=== PATIENT | female | born 1965 | race Asian ===

== ENCOUNTER 2024-11-16 19:27 | Inpatient (IN) | payer MEDICARE, OTHER ==
--- NOTE | 2024-11-16 19:43 | ED ---
General Adult HPI - General Chief complaint: Dizziness Stated complaint: dizziness Time Seen by Provider: 11/16/24 19:28 Source: patient, EMS, RN notes reviewed, old records reviewed Mode of arrival: EMS Limitations: no limitations - History of Present Illness Initial comments: 59-year-old female presenting with lightheadedness, dizziness, hypotension. Patient has history of CAD as well as diabetes. She is on Farxiga and believes this medication is causing her symptoms. She is also on lisinopril and hydrochlorothiazide. No recent medication changes. No fever. No chest pain. No dyspnea. No lower extremity pain or swelling. - Related Data Allergies Allergy/AdvReac Type Severity Reaction Status Date / Time No Known Allergies Allergy Verified 11/16/24 19:56 Review of Systems ROS Statement: Those systems with pertinent positive or pertinent negative responses have been documented in the HPI. ROS Other: All systems not noted in ROS Statement are negative. Past Medical History Past Medical History: Chest Pain / Angina, Diabetes Mellitus, Hypertension History of Any Multi-Drug Resistant Organisms: None Reported Past Surgical History: Section, Coronary Bypass/CABG Additional Past Surgical History / Comment(s): Femoral bypass Past Psychological History: No Psychological Hx Reported Smoking Status: Never smoker Past Alcohol Use History: None Reported Past Drug Use History: None Reported General Exam Limitations: no limitations General appearance: alert, in no apparent distress Head exam: Present: atraumatic, normocephalic Eye exam: Present: normal appearance, PERRL ENT exam: Present: normal exam Neck exam: Present: normal inspection. Absent: tenderness Respiratory exam: Present: normal lung sounds bilaterally. Absent: respiratory distress, wheezes Cardiovascular Exam: Present: regular rate, normal rhythm GI/Abdominal exam: Present: soft. Absent: distended, tenderness Extremities exam: Present: normal inspection, normal capillary refill Neurological exam: Present: alert, oriented X3, CN II-XII intact. Absent: motor sensory deficit Psychiatric exam: Present: normal affect, normal mood Skin exam: Present: warm, dry, intact Course Vital Signs 11/16/24 11/16/24 19:32 20:10 Temperature 98.6 F Pulse Rate 70 72 Respiratory 18 18 Rate Blood Pressure 94/41 123/67 O2 Sat by Pulse 100 98 Oximetry Medical Decision Making - Medical Decision Making Was pt. sent in by a medical professional or institution (, PA, TEMPLATE MAKER, urgent care, hospital, or intermediate...) When possible be specific @ -No Did you speak to anyone other than the patient for history (EMS, parent, family, police, friend...)? What history was obtained from this source @ -No Did you review nursing and triage notes (agree or disagree)? Why? @ -I reviewed and agree with nursing and triage notes Were old charts reviewed (outside hosp., previous admission, EMS record, old EKG, old radiological studies, urgent care reports/EKG's, intermediate records)? Report findings @ -No old charts were reviewed Differential Syncope: Valvular disease, hypertrophic cardiomyopathy, pulmonary embolism, tamponade, tachycardia, bradycardia, SD, hypovolemia, hemorrhage, dissection, anemia, intracranial hemorrhage, seizure, hypoglycemia, carbon monoxide poisoning, this is not meant to be an all-inclusive list. EKG interpreted by me (3pts min.). @ -Sinus rhythm with left bundle branch block, no old for comparison, rate of 70, AR interval 200, QRS duration 154, QTc 480 X-rays interpreted by me (1pt min.). @Chest x-ray clear no acute findings CT interpreted by me (1pt min.). @ -None done U/S interpreted by me (1pt. min.). @ -None done What testing was considered but not performed or refused? (CT, X-rays, U/S, labs)? Why? @ -None What meds were considered but not given or refused? Why? @ -None Did you discuss the management of the patient with other professionals (professionals i.e. , PA, TEMPLATE MAKER, lab, RT, psych nurse, sr. social media & mobile manager, consulting engineer, teacher, airfield services officer, dependency case manager)? Give summary @ -EMH Was smoking cessation discussed for >3mins.? @ -No Was critical care preformed (if so, how long)? @ -No Were there social determinants of health that impacted care today? How? (Homelessness, low income, unemployed, alcoholism, drug addiction, transportation, low edu. Level, literacy, decrease access to med. care, fci, rehab)? @ -No Was there de-escalation of care discussed even if they declined (Discuss DNR or withdrawal of care, Hospice)? DNR status @ -No What co-morbidities impacted this encounter? (DM, HTN, Smoking, COPD, CAD, Ca ncer, CVA, ARF, Chemo, Hep., AIDS, mental health diagnosis, sleep apnea, morbid obesity)? @Diabetes, CAD status post bypass Was patient admitted / discharged? Hospital course, mention meds given and r oute, prescriptions, significant lab abnormalities, going to OR and other pertinent info. @59-year-old female with lightheadedness, dizziness, hypotension. Patient has significant past medical history she is on multiple medications and believes that her symptoms are related to her Farxiga. She does appear dehydrated, given IV fluids with improvement in blood pressure. She has no baseline EKG no baseline laboratory test due to the fact that she lives in [place]. Her sodium is 124 and hemoglobin is 7. She denies any active bleeding including no melena or rectal bleeding. She will be observed overnight for IV hydration and repeat laboratory testing in the morning. Case discussed with EM. Undiagnosed new problem with uncertain prognosis? @ -No Drug Therapy requiring intensive monitoring for toxicity (Heparin, Nitro, Insulin, Cardizem)? @ -No Were any procedures done? @ -No Diagnosis/symptom? @ -[Orthostatic hypotension, near syncope, anemia, hyponatremia Acute, or Chronic, or Acute on Chronic? @ -Acute Uncomplicated (without systemic symptoms) or Complicated (systemic symptoms)? @ -[default Side effects of treatment? @ -No Exacerbation, Progression, or Severe Exacerbation? @ -No Poses a threat to life or bodily function? How? (Chest pain, USA, SD, pneumonia, PE, COPD, DKA, ARF, appy, cholecystitis, CVA, Diverticulitis, Homicidal, Suicidal, threat to staff... and all critical care pts) @ -Yes, hypotension - Lab Data Result diagrams: 11/16/24 20:08 11/16/24 20:08 Lab Results 11/16/24 11/16/24 11/16/24 Range/Units 20:08 20:08 20:08 WBC 10.15 H (4.50-10.00) 10*3/uL RBC 2.84 L (4.10-5.20) 10*6/uL Hgb 7.1 L (12.0-15.0) g/dL Hct 21.8 L (37.2-46.3) % MCV 76.8 L (80.0-97.0) fL MCH 25.0 L (27.0-32.0) pg MCHC 32.6 (32.0-37.0) g/dL Plt Count 186 (140-440) 10*3/uL MPV 12.0 (9.5-12.2) fL Immature Gran % (Auto) 0.4 % Neutrophils % 79.5 % Lymphocytes % 10.0 % Monocytes % 7.8 % Eosinophils % 1.6 % Basophils % 0.7 % Immature Gran # 0.04 (0.00-0.04) 10*3/uL Neutrophils # 8.07 H (1.80-7.70) 10*3/uL Lymphocytes # 1.02 (0.90-5.00) 10*3/uL Monocytes # 0.79 (0.20-1.00) 10*3/uL Eosinophils # 0.16 (0.04-0.35) 10*3/uL Basophils # 0.07 (0.00-0.10) 10*3/uL Immature Plt Fraction 15.3 H (1.1-6.1) % PT 10.9 (10.0-12.5) sec INR 1.0 (<1.2) APTT 24.7 (22.0-30.0) sec Sodium 124 L (137-145) mmol/L Potassium 4.8 (3.5-5.1) mmol/L Chloride 95 L (98-107) mmol/L Carbon Dioxide 19 L (22-30) mmol/L Anion Gap 10 mmol/L BUN 15 (7-17) mg/dL Creatinine 0.79 (0.52-1.04) mg/dL Est GFR (CKD-EPI)AfAm >90 (>60 ml/min/1.73 sqM) Est GFR (CKD-EPI)NonAf 84 (>60 ml/min/1.73 sqM) Glucose 289 H (74-99) mg/dL Calcium 8.9 (8.4-10.2) mg/dL Total Bilirubin 0.5 (0.2-1.3) mg/dL AST 22 (14-36) U/L ALT 17 (4-34) U/L Alkaline Phosphatase 75 (38-126) U/L Troponin I (0.000-0.034) ng/mL Total Protein 6.7 (6.3-8.2) g/dL Albumin 4.2 (3.5-5.0) g/dL Urine Color Urine Appearance (Clear) Urine pH (5.0-8.0) Ur Specific [place] (1.001-1.035) Urine Protein (Negative) Urine Glucose (UA) (Negative) Urine Ketones (Negative) Urine Blood (Negative) Urine Nitrite (Negative) Urine Bilirubin (Negative) Urine Urobilinogen (<2.0) mg/dL Ur Leukocyte Esterase (Negative) Urine RBC (0-5) /hpf Urine WBC (0-5) /hpf Ur Squamous Epith Cells (0-4) /hpf Urine Bacteria (None) /hpf 11/16/24 11/16/24 Range/Units 20:08 21:01 WBC (4.50-10.00) 10*3/uL RBC (4.10-5.20) 10*6/uL Hgb (12.0-15.0) g/dL Hct (37.2-46.3) % MCV (80.0-97.0) fL MCH (27.0-32.0) pg MCHC (32.0-37.0) g/dL Plt Count (140-440) 10*3/uL MPV (9.5-12.2) fL Immature Gran % (Auto) % Neutrophils % % Lymphocytes % % Monocytes % % Eosinophils % % Basophils % % Immature Gran # (0.00-0.04) 10*3/uL Neutrophils # (1.80-7.70) 10*3/uL Lymphocytes # (0.90-5.00) 10*3/uL Monocytes # (0.20-1.00) 10*3/uL Eosinophils # (0.04-0.35) 10*3/uL Basophils # (0.00-0.10) 10*3/uL Immature Plt Fraction (1.1-6.1) % PT (10.0-12.5) sec INR (<1.2) APTT (22.0-30.0) sec Sodium (137-145) mmol/L Potassium (3.5-5.1) mmol/L Chloride (98-107) mmol/L Carbon Dioxide (22-30) mmol/L Anion Gap mmol/L BUN (7-17) mg/dL Creatinine (0.52-1.04) mg/dL Est GFR (CKD-EPI)AfAm (>60 ml/min/1.73 sqM) Est GFR (CKD-EPI)NonAf (>60 ml/min/1.73 sqM) Glucose (74-99) mg/dL Calcium (8.4-10.2) mg/dL Total Bilirubin (0.2-1.3) mg/dL AST (14-36) U/L ALT (4-34) U/L Alkaline Phosphatase (38-126) U/L Troponin I <0.012 (0.000-0.034) ng/mL Total Protein (6.3-8.2) g/dL Albumin (3.5-5.0) g/dL Urine Color Colorless Urine Appearance Cloudy H (Clear) Urine pH 5.0 (5.0-8.0) Ur Specific [place] 1.010 (1.001-1.035) Urine Protein Negative (Negative) Urine Glucose (UA) 4+ H (Negative) Urine Ketones Negative (Negative) Urine Blood Negative (Negative) Urine Nitrite Negative (Negative) Urine Bilirubin Negative (Negative) Urine Urobilinogen <2.0 (<2.0) mg/dL Ur Leukocyte Esterase Trace H (Negative) Urine RBC 1 (0-5) /hpf Urine WBC 5 (0-5) /hpf Ur Squamous Epith Cells 1 (0-4) /hpf Urine Bacteria Occasional H (None) /hpf Disposition Clinical Impression: Dehydration, Orthostatic hypotension, Hyponatremia, Anemia Disposition: ADMITTED IP TO THIS HOSP Condition: Stable Is patient prescribed a controlled substance at d/c from ED?: No Referrals: None,Stated [Primary Care Provider] - 1-2 days Time of Disposition: 21:24
[2024-11-16] MEDS: SODIUM CHLORIDE 0.9% 500 ML 500 ML IV STA (20:13)
[2024-11-16 20:23] LABS: Basophils # (A) 0.07 10*3/uL (0.00-0.10); Basophils % (A) 0.7 %; Eosinophils # (A) 0.16 10*3/uL (0.04-0.35); Eosinophils % (A) 1.6 %; HCT 21.8 % (37.2-46.3); HGB 7.1 g/dL (12.0-15.0); Immature Platelet Fraction 15.3 % (1.1-6.1); Lymphocytes # (A) 1.02 10*3/uL (0.90-5.00); MCHC 32.6 g/dL (32.0-37.0); MCV 76.8 fL (80.0-97.0); Monocytes # (A) 0.79 10*3/uL (0.20-1.00); Monocytes % (A) 7.8 %; Neutrophils # (A) 8.07 10*3/uL (1.80-7.70); Neutrophils % (A) 79.5 %; Platelet Count 186 10*3/uL (140-440); RBC 2.84 10*6/uL (4.10-5.20); RDW 17.3 % (11.5-14.5); WBC 10.15 10*3/uL (4.50-10.00)
[2024-11-16 20:32] LABS: African American GFR (CKD) >90 (>60 ml/min/1.73 sqM); Anion Gap 10 mmol/L; Blood Urea Nitrogen 15 mg/dL (7-17); Carbon Dioxide 19 mmol/L (22-30); Chloride 95 mmol/L (98-107); Glucose 289 mg/dL (74-99); Potassium 4.8 mmol/L (3.5-5.1); Sodium 124 mmol/L (137-145)
[2024-11-16 20:33] LABS: ALT 17 U/L (4-34); AST 22 U/L (14-36); Albumin 4.2 g/dL (3.5-5.0); Alkaline Phosphatase 75 U/L (38-126); Calcium 8.9 mg/dL (8.4-10.2); Non-African American GFR(CKD) 84 (>60 ml/min/1.73 sqM); Total Bilirubin 0.5 mg/dL (0.2-1.3); Total Protein 6.7 g/dL (6.3-8.2)
[2024-11-16 20:54] LABS: Partial Thromboplastin Time 24.7 sec (22.0-30.0); Prothrombin Time 10.9 sec (10.0-12.5)
--- NOTE | 2024-11-16 20:58 | XR ---
EXAMINATION TYPE: XR chest 2V DATE OF EXAM: 11/16/2024 8:20 PM COMPARISON: None CLINICAL INDICATION: Female, 59 years old with history of syncope; TECHNIQUE: XR chest 2V Frontal and lateral views of the chest. FINDINGS: Lungs/Pleura: There is no evidence of pleural effusion, focal consolidation, or pneumothorax. Pulmonary vascularity: Unremarkable. Heart/mediastinum: Cardiomediastinal silhouette is unremarkable. Two lead cardiac conduction device o verlying the left hemithorax with lead tips projecting over the right ventricle and right atrium. Lef t atrial appendage occlusion device is present. Musculoskeletal: No acute osseous pathology. Midline sternotomy wires are noted. Other findings: None IMPRESSION: No acute cardiopulmonary disease/process. [facility], , 11/16/2024 8:56 PM
[2024-11-16] MEDS: SODIUM CHLORIDE 0.9% 500 ML 500 ML IV ONE (21:08)
[2024-11-16 21:20] LABS: Appearance,Urine Cloudy (Clear); Bacteria,Urine Occasional /hpf; Bilirubin,Urine Negative (Negative); Blood,Urine Negative (Negative); Color,Urine Colorless; Glucose,Urine (UA) 4+ (Negative); Ketones,Urine Negative (Negative); Leukocyte Esterase,Urine Trace (Negative); Nitrite,Urine Negative (Negative); Protein,Urine Negative (Negative); RBC,Urine 1 /hpf (0-5); Squamous Epithelial Cell,Urine 1 /hpf (0-4); Urobilinogen,Urine <2.0 mg/dL (<2.0); WBC,Urine 5 /hpf (0-5)
[2024-11-16] MEDS ORDERED: NALOXONE 0.4 MG/ML 1 ML VIAL IV PRN (21:24)
[2024-11-16] MEDS: SODIUM CHLORIDE 0.9% 1,000 ML IV SCH (21:51)
[2024-11-16] MEDS: ACETAMINOPHEN TAB 325 MG TAB PO PRN (21:54)
[2024-11-17 06:11] LABS: Basophils # (A) 0.06 10*3/uL (0.00-0.10); Basophils % (A) 0.8 %; Eosinophils # (A) 0.16 10*3/uL (0.04-0.35); Lymphocytes # (A) 0.86 10*3/uL (0.90-5.00); Lymphocytes % (A) 10.8 %; MCH 24.4 pg (27.0-32.0); MCHC 30.6 g/dL (32.0-37.0); MCV 79.5 fL (80.0-97.0); Mean Platelet Volume 12.2 fL (9.5-12.2); Monocytes # (A) 0.73 10*3/uL (0.20-1.00); Monocytes % (A) 9.2 %; Neutrophils # (A) 6.11 10*3/uL (1.80-7.70); Neutrophils % (A) 76.7 %; Platelet Count 151 10*3/uL (140-440); RBC 2.34 10*6/uL (4.10-5.20); RDW 17.5 % (11.5-14.5); WBC 7.96 10*3/uL (4.50-10.00)
[2024-11-17 06:14] LABS: HCT 18.6 % (37.2-46.3); HGB 5.7 g/dL (12.0-15.0)
[2024-11-17 06:29] LABS: Glucose,Whole Blood 195 mg/dL (70-110)
[2024-11-17 06:31] LABS: ALT 44 U/L (4-34); AST 62 U/L (14-36); African American GFR (CKD) >90 (>60 ml/min/1.73 sqM); Albumin 3.3 g/dL (3.5-5.0); Alkaline Phosphatase 60 U/L (38-126); Anion Gap 6 mmol/L; Blood Urea Nitrogen 14 mg/dL (7-17); Calcium 8.5 mg/dL (8.4-10.2); Carbon Dioxide 18 mmol/L (22-30); Chloride 105 mmol/L (98-107); Glucose 154 mg/dL (74-99); Non-African American GFR(CKD) >90 (>60 ml/min/1.73 sqM); Potassium 4.8 mmol/L (3.5-5.1); Sodium 129 mmol/L (137-145); Total Bilirubin 0.5 mg/dL (0.2-1.3); Total Protein 5.6 g/dL (6.3-8.2)
[2024-11-17] MEDS: PANTOPRAZOLE 40 MG/10 ML VIAL IVP ONE (10:17)
[2024-11-17] MEDS ORDERED: DEXTROSE 50% SYRINGE 50 ML IVP PRN ×2 (11:16)
[2024-11-17 12:55] LABS: Glucose,Whole Blood 219 mg/dL (70-110)
[2024-11-17] MEDS: FUROSEMIDE 10 MG/ML 2 ML VIAL IV PRN (12:55)
[2024-11-17] MEDS: SPIRONOLACTONE 25 MG TAB PO SCH (12:56)
[2024-11-17] MEDS: INSULIN LISPRO (HumaLOG) 100 UNIT/ML 10 mL VL SQ SCH (13:07)
--- NOTE | 2024-11-17 15:01 | P.GSCN ---
History of Present Illness Consult date: 11/17/24 History of present illness: CHIEF COMPLAINT: Dizziness HISTORY OF PRESENT ILLNESS: This is a 59-year-old female who presented with lightheadedness, dizziness and hypotension. Patient denies any abdominal pain. Denies any nausea or vomiting. Denies any blood in her stools or melena. Patient denies any blood in her urine. Denies any nosebleeds. She was found to be anemic on admission with a hemoglobin of 7.1 did drop to 5.7. She is receiving 2 units of blood. Patient does take Eliquis and Plavix at home last dose was yesterday. She reports requiring blood transfusions after her past surgical procedures which had included a triple bypass, femoral artery bypass and after being IV heparin DVT. Patient denies any NSAID use. Patient denies any prior history of EGD or colonoscopy. Patient lives in [place]. PAST MEDICAL HISTORY: See below PAST SURGICAL HISTORY: See below MEDICATIONS: See below ALLERGIES: See below SOCIAL HISTORY: No illicit drug use. REVIEW OF SYSTEMS: CONSTITUTIONAL: Denies fever or chills. HEENT: Denies blurred vision, vision changes, or eye pain. Denies hemoptysis CARDIOVASCULAR: Denies chest pain or pressure. RESPIRATORY: No shortness of breath. GASTROINTESTINAL: See HPI for pertinent findings HEMATOLOGIC: Denies bleeding disorders. GENITOURINARY: Denies any blood in urine or increased urinary frequency. SKIN: Denies pruitis. Denies rash. PHYSICAL EXAM: VITAL SIGNS: Reviewed GENERAL: Well-developed in no acute distress. HEENT: No sclera icterus. Extraocular movements grossly intact. Moist buccal mucosa. Head is atraumatic, normocephalic. No nasal drainage. ABDOMEN: Soft. Nondistended. Nontender., No rebound or guarding noted. NEUROLOGIC: Alert and oriented. Cranial nerves II through XII grossly intact. LABORATORY DATA: WBC 10.15 Hgb 7.1 down to 5.7 platelets 151 Sodium is 129 potassium 4.8 creatinine 0.58 Total bilirubin 0.5 AST 62 ALT 44 alk phos 60 Troponin negative IMAGING: ASSESSMENT: 1. Symptomatic anemia with no active GI bleed. On blood thinners at home. Status post 2 units of blood. 2. Hyponatremia PLAN: - Continue to hold Eliquis and Plavix - Recommended EGD and colonoscopy. Patient has declined endoscopies at this time. - Continue to monitor hemoglobin - Continue to monitor for any signs or symptoms of bleeding Physician [employer] note has been reviewed by physician. Signing provider agrees with the documented findings, assessment, and plan of care. Attestation Patient seen and examined at bedside on 11/17/2024. Presented with a chief complaint of lightheadedness, dizziness and hypotension. She is found to have symptomatic anemia with hemoglobin of 5.7. Receiving packed red blood cell transfusion x 2. She is on anticoagulation with Eliquis and Plavix. Denies any gross blood in her stool. Recommendation was made for endoscopy. The patient states that she was scheduled for endoscopy initially in June 2024, however did cancel because she developed a DVT requiring anticoagulation. She is scheduled for later this year and lives in [place] and prefers that endoscopy is performed there if not necessary at this time. Patient is aware of risks and if she develops any further symptoms of bleeding may require emergency procedure . Clarissa Quezada DO Past Medical History Past Medical History: Chest Pain / Angina, Diabetes Mellitus, Hypertension History of Any Multi-Drug Resistant Organisms: None Reported Past Surgical History: Section, Coronary Bypass/CABG Additional Past Surgical History / Comment(s): Femoral bypass Past Psychological History: No Psychological Hx Reported Smoking Status: Never smoker Past Alcohol Use History: None Reported Past Drug Use History: None Reported Medications and Allergies Home Medications Medication Instructions Recorded Confirmed Type Evolocumab [Repatha Sureclick] 140 mg SQ Q14D 11/17/24 11/17/24 History Insulin Glargine,Hum.rec.anlog 10 unit SQ HS 11/17/24 11/17/24 History [Basagljanessa Garcia U-100] Rosuvastatin Calcium 5 mg PO DAILY 11/17/24 11/17/24 History Spironolactone [Aldactone] 25 mg PO DAILY 11/17/24 11/17/24 History carvediloL [Coreg] 3.125 mg PO BID 11/17/24 11/17/24 History lisinopriL [Zestril] 10 mg PO DAILY 11/17/24 11/17/24 History Ferrous Sulfate [Feosol] 325 mg PO DAILY #30 tab 11/18/24 Rx Pantoprazole Sodium [Protonix] 40 mg PO ONCE #30 tab 11/18/24 Rx Allergies Allergy/AdvReac Type Severity Reaction Status Date / Time No Known Allergies Allergy Verified 11/17/24 08:44 Surgical - Exam Osteopathic Statement: *. No significant issues noted on an osteopathic structural exam other than those noted in the History and Physical/Consult. Vital Signs Temp Pulse Resp BP Pulse Ox 98.6 F 70 18 94/41 100 11/16/24 19:32 11/16/24 19:32 11/16/24 19:32 11/16/24 19:32 11/16/24 19:32 Results - Labs 11/18/24 06:33 11/18/24 06:33 Abnormal Lab Results - Last 24 Hours (Table) 11/16/24 11/16/24 11/16/24 Range/Units 20:08 20:08 21:01 WBC 10.15 H (4.50-10.00) 10*3/uL RBC 2.84 L (4.10-5.20) 10*6/uL Hgb 7.1 L (12.0-15.0) g/dL Hct 21.8 L (37.2-46.3) % MCV 76.8 L (80.0-97.0) fL MCH 25.0 L (27.0-32.0) pg MCHC (32.0-37.0) g/dL Neutrophils # 8.07 H (1.80-7.70) 10*3/uL Lymphocytes # (0.90-5.00) 10*3/uL Immature Plt Fraction 15.3 H (1.1-6.1) % Sodium 124 L (137-145) mmol/L Chloride 95 L (98-107) mmol/L Carbon Dioxide 19 L (22-30) mmol/L Glucose 289 H (74-99) mg/dL POC Glucose (mg/dL) (70-110) mg/dL AST (14-36) U/L ALT (4-34) U/L Total Protein (6.3-8.2) g/dL Albumin (3.5-5.0) g/dL Urine Appearance Cloudy H (Clear) Urine Glucose (UA) 4+ H (Negative) Ur Leukocyte Esterase Trace H (Negative) Urine Bacteria Occasional H (None) /hpf Crossmatch 11/17/24 11/17/24 11/17/24 Range/Units 05:33 05:33 06:28 WBC (4.50-10.00) 10*3/uL RBC 2.34 L (4.10-5.20) 10*6/uL Hgb 5.7 L* (12.0-15.0) g/dL Hct 18.6 L* (37.2-46.3) % MCV 79.5 L (80.0-97.0) fL MCH 24.4 L (27.0-32.0) pg MCHC 30.6 L (32.0-37.0) g/dL Neutrophils # (1.80-7.70) 10*3/uL Lymphocytes # 0.86 L (0.90-5.00) 10*3/uL Immature Plt Fraction 14.0 H (1.1-6.1) % Sodium 129 L (137-145) mmol/L Chloride (98-107) mmol/L Carbon Dioxide 18 L (22-30) mmol/L Glucose 154 H (74-99) mg/dL POC Glucose (mg/dL) 195 H (70-110) mg/dL AST 62 H (14-36) U/L ALT 44 H (4-34) U/L Total Protein 5.6 L (6.3-8.2) g/dL Albumin 3.3 L (3.5-5.0) g/dL Urine Appearance (Clear) Urine Glucose (UA) (Negative) Ur Leukocyte Esterase (Negative) Urine Bacteria (None) /hpf Crossmatch 11/17/24 Range/Units 06:51 WBC (4.50-10.00) 10*3/uL RBC (4.10-5.20) 10*6/uL Hgb (12.0-15.0) g/dL Hct (37.2-46.3) % MCV (80.0-97.0) fL MCH (27.0-32.0) pg MCHC (32.0-37.0) g/dL Neutrophils # (1.80-7.70) 10*3/uL Lymphocytes # (0.90-5.00) 10*3/uL Immature Plt Fraction (1.1-6.1) % Sodium (137-145) mmol/L Chloride (98-107) mmol/L Carbon Dioxide (22-30) mmol/L Glucose (74-99) mg/dL POC Glucose (mg/dL) (70-110) mg/dL AST (14-36) U/L ALT (4-34) U/L Total Protein (6.3-8.2) g/dL Albumin (3.5-5.0) g/dL Urine Appearance (Clear) Urine Glucose (UA) (Negative) Ur Leukocyte Esterase (Negative) Urine Bacteria (None) /hpf Crossmatch See Detail Diabetes panel 11/16/24 11/17/24 Range/Units 20:08 05:33 Sodium 124 L 129 L (137-145) mmol/L Potassium 4.8 4.8 (3.5-5.1) mmol/L Chloride 95 L 105 (98-107) mmol/L Carbon Dioxide 19 L 18 L (22-30) mmol/L BUN 15 14 (7-17) mg/dL Creatinine 0.79 0.58 (0.52-1.04) mg/dL Glucose 289 H 154 H (74-99) mg/dL Calcium 8.9 8.5 (8.4-10.2) mg/dL AST 22 62 H (14-36) U/L ALT 17 44 H (4-34) U/L Alkaline Phosphatase 75 60 (38-126) U/L Total Protein 6.7 5.6 L (6.3-8.2) g/dL Albumin 4.2 3.3 L (3.5-5.0) g/dL Calcium panel 11/16/24 11/17/24 Range/Units 20:08 05:33 Calcium 8.9 8.5 (8.4-10.2) mg/dL Albumin 4.2 3.3 L (3.5-5.0) g/dL Pituitary panel 11/16/24 11/17/24 Range/Units 20:08 05:33 Sodium 124 L 129 L (137-145) mmol/L Potassium 4.8 4.8 (3.5-5.1) mmol/L Chloride 95 L 105 (98-107) mmol/L Carbon Dioxide 19 L 18 L (22-30) mmol/L BUN 15 14 (7-17) mg/dL Creatinine 0.79 0.58 (0.52-1.04) mg/dL Glucose 289 H 154 H (74-99) mg/dL Calcium 8.9 8.5 (8.4-10.2) mg/dL Adrenal panel 11/16/24 11/17/24 Range/Units 20:08 05:33 Sodium 124 L 129 L (137-145) mmol/L Potassium 4.8 4.8 (3.5-5.1) mmol/L Chloride 95 L 105 (98-107) mmol/L Carbon Dioxide 19 L 18 L (22-30) mmol/L BUN 15 14 (7-17) mg/dL Creatinine 0.79 0.58 (0.52-1.04) mg/dL Glucose 289 H 154 H (74-99) mg/dL Calcium 8.9 8.5 (8.4-10.2) mg/dL Total Bilirubin 0.5 0.5 (0.2-1.3) mg/dL AST 22 62 H (14-36) U/L ALT 17 44 H (4-34) U/L Alkaline Phosphatase 75 60 (38-126) U/L Total Protein 6.7 5.6 L (6.3-8.2) g/dL Albumin 4.2 3.3 L (3.5-5.0) g/dL
[2024-11-17 16:06] LABS: HCT 25.8 % (37.2-46.3); MCH 26.7 pg (27.0-32.0); MCHC 32.6 g/dL (32.0-37.0); MCV 81.9 fL (80.0-97.0); Mean Platelet Volume 12.6 fL (9.5-12.2); Platelet Count 154 10*3/uL (140-440); RBC 3.15 10*6/uL (4.10-5.20); RDW 17.4 % (11.5-14.5)
[2024-11-17 16:17] LABS: HGB 8.4 g/dL (12.0-15.0)
[2024-11-17 16:59] LABS: Glucose,Whole Blood 280 mg/dL (70-110)
[2024-11-17] MEDS: carvediloL 3.125 MG TAB PO SCH (17:13)
--- NOTE | 2024-11-17 17:31 | P.HPIM ---
History of Present Illness H&P Date: 11/17/24 Patient is a 59-year-old female with history of CAD status post CABG, peripheral artery disease status post vascular surgeries (most recent in May 2024), type 2 diabetes mellitus, hypertension, former heavy smoker and drinker came was brought to the ER after she has been feeling weak, dizzy, lightheaded, dehydrated for 3 to 4 days. Patient is visiting his brother from [place]. Patient denies any history of upper or lower GI bleed. Patient reports no bloody stools or dark-colored stools. Patient is postmenopausal and reports no vaginal bleeding. No EGD or colonoscopy in the past. Patient is currently on Eliquis and Plavix. Patient also reports falling on the floor at home due to weakness and dizziness hurting both her knees but denies any injury to the head. Patient denies using NSAIDs. Patient currently denies any chest pain, shortness of breath, nausea, vomiting, diarrhea, constipation, numbness or weakness of upper or lower extremities. ED course: Patient initial lab work shows WBC 10.15, hemoglobin 7.1, sodium 124, potassium 4.8, glucose 289, BUN 15, creatinine 0.79. Subsequent lab work shows hemoglobin 5.7, sodium 129, AST 62, ALT 64,. Urinalysis positive for glycosuria. Patient currently receiving 2 units of packed RBC. Vital signs on arrival shows temperature 98.6 F, pulse rate 70, respiration rate 18, blood pressure 94/41, oxygen saturation 100% room air. Chest x-ray shows no acute cardiopulmonary process. EKG shows normal sinus rhythm with no ST elevation noted. Ventricular rate 70 bpm, GA interval of 201 ms, QRS duration 154 ms, QTc 480 ms. Review of systems: Pertinent positives and negatives as discussed in HPI, a complete review of systems was performed and all other systems are negative. Physical examination: Vital signs reviewed General: non toxic, no distress, appears at stated age, overweight Derm: no unusual rashes/lesions, warm Head: atraumatic, normocephalic, symmetric Eyes: EOMI, no lid lag, anicteric sclera, pupils equal round reactive to light ENT: Nose and ears atraumatic Neck: No cervical lymphadenopathy, trachea midline, supple Mouth: no lip lesion, mucus membranes moist Cardiovascular: S1S2 reg, no murmur, positive dorsalis pedis pulse bilateral, no edema Lungs: Mild bilateral expiratory wheezing, no rhonchi, no rales, no accessory muscle use Abdominal: soft, nontender to palpation, no guarding Ext: muscle strength 5 out of 5 in all 4 extremities grossly, no gross muscle atrophy, no contractures, Neuro: CN II-XI grossly intact, no gross focal neuro deficits Psych: Alert, oriented, appropriate affect Assessment/Plan: This is a 59-year-old female with history of CAD status post CABG, peripheral artery disease status post vascular surgeries (most recent in May 2024), type 2 diabetes mellitus, hypertension, former heavy smoker and drinker came was brought to the ER after she has been feeling weak, dizzy, lightheaded, dehydrated for 3 to 4 days. . Case was discussed with the Emergency Room pr cindy and decision was made to admit the patient for acute blood loss anemia, rule out upper GI bleed. Labs and images: Patient initial lab work shows WBC 10.15, hemoglobin 7.1, sodium 124, potassium 4.8, glucose 289, BUN 15, creatinine 0.79. Subsequent lab work shows hemoglobin 5.7, sodium 129, AST 62, ALT 64,. Urinalysis positive for glycosuria. Patient currently receiving 2 units of packed RBC. Vital signs on arrival shows temperature 98.6 F, pulse rate 70, respiration rate 18, blood pressure 94/41, oxygen saturation 100% room air. Chest x-ray shows no acute cardiopulmonary process. EKG shows normal sinus rhythm with no ST elevation noted. Ventricular rate 70 bpm, GA interval of 201 ms, QRS duration 154 ms, QTc 480 ms. Active: #Suspected acute blood loss anemia secondary to suspected upper GI bleed #Lightheadedness, generalized weakness secondary to above Hemoglobin dropped from 7.1 to 5.7 2 units of packed RBCs been ordered GI service is not available at this week so consult surgery team for upper GI endoscopy to rule out UGIB Received 1 dose of IV Protonix 80 mg Start patient on IV Protonix 40 mg twice daily Repeat hemoglobin in the afternoon Continue to monitor vital signs #Hypovolemic hyponatremia due to dehydration IV normal saline at 75 cc/h Continue monitor sodium levels #Type 2 diabetes mellitus Resume patient on Lantus 26 units SQ at bedtime Start patient on sliding scale insulin Continue monitor for hypoglycemia #Mild transaminitis due to dehydration Monitor CMP #History of CAD status post CABG #History of PAD status post vascular surgeries Hold Plavix and Eliquis DVT prophylaxis: SCDs GI prophylaxis: IV Protonix 40 mg twice daily Resume home medications F: IV normal saline 75 cc/h E: Replete as needed N: Heart healthy diet A: Ambulatory at baseline The patient is admitted with an anticipated more than than 2 midnight stay for evaluation of acute blood loss anemia likely UGIB CODE STATUS: Full code Discussed with: Patient Anticipated discharge place: Pending clinical course Dictation was produced using [employer] dictation software. Please excuse any grammatical, word or spelling errors. Past Medical History Past Medical History: Chest Pain / Angina, Diabetes Mellitus, Hypertension History of Any Multi-Drug Resistant Organisms: None Reported Past Surgical History: Section, Coronary Bypass/CABG Additional Past Surgical History / Comment(s): Femoral bypass Past Psychological History: No Psychological Hx Reported Smoking Status: Never smoker Past Alcohol Use History: None Reported Past Drug Use History: None Reported Medications and Allergies Home Medications Medication Instructions Recorded Confirmed Type Apixaban [Eliquis] 5 mg PO BID 11/17/24 11/17/24 History Clopidogrel [Plavix] 75 mg PO DAILY 11/17/24 11/17/24 History Evolocumab [Repatha Sureclick] 140 mg SQ Q14D 11/17/24 11/17/24 History Insulin Glargine,Hum.rec.anlog 10 unit SQ HS 11/17/24 11/17/24 History [Basaglar Kwikpen U-100] Rosuvastatin Calcium 5 mg PO DAILY 11/17/24 11/17/24 History Spironolactone [Aldactone] 25 mg PO DAILY 11/17/24 11/17/24 History carvediloL [Coreg] 3.125 mg PO BID 11/17/24 11/17/24 History lisinopriL [Zestril] 10 mg PO DAILY 11/17/24 11/17/24 History Allergies Allergy/AdvReac Type Severity Reaction Status Date / Time No Known Allergies Allergy Verified 11/17/24 08:44 Physical Exam Vitals: Vital Signs Temp Pulse Resp BP Pulse Ox 11/17/24 07:44 15 11/17/24 06:13 62 18 91/44 99 11/17/24 03:00 69 17 99/56 99 11/17/24 02:32 74 18 105/50 98 11/17/24 00:57 80 18 103/50 97 11/16/24 23:00 76 18 133/65 97 11/16/24 21:56 78 18 119/50 98 11/16/24 20:10 72 18 123/67 98 11/16/24 19:32 98.6 F 70 18 94/41 100 Intake and Output 11/16/24 11/17/24 11/17/24 22:59 06:59 14:59 Other: Weight 62.596 kg Results CBC & Chem 7: 11/17/24 05:33 11/17/24 05:33 Labs: Abnormal Lab Results - Last 24 Hours (Table) 11/16/24 11/16/24 11/16/24 Range/Units 20:08 20:08 21:01 WBC 10.15 H (4.50-10.00) 10*3/uL RBC 2.84 L (4.10-5.20) 10*6/uL Hgb 7.1 L (12.0-15.0) g/dL Hct 21.8 L (37.2-46.3) % MCV 76.8 L (80.0-97.0) fL MCH 25.0 L (27.0-32.0) pg MCHC (32.0-37.0) g/dL Neutrophils # 8.07 H (1.80-7.70) 10*3/uL Lymphocytes # (0.90-5.00) 10*3/uL Immature Plt Fraction 15.3 H (1.1-6.1) % Sodium 124 L (137-145) mmol/L Chloride 95 L (98-107) mmol/L Carbon Dioxide 19 L (22-30) mmol/L Glucose 289 H (74-99) mg/dL POC Glucose (mg/dL) (70-110) mg/dL AST (14-36) U/L ALT (4-34) U/L Total Protein (6.3-8.2) g/dL Albumin (3.5-5.0) g/dL Urine Appearance Cloudy H (Clear) Urine Glucose (UA) 4+ H (Negative) Ur Leukocyte Esterase Trace H (Negative) Urine Bacteria Occasional H (None) /hpf Crossmatch 11/17/24 11/17/24 11/17/24 Range/Units 05:33 05:33 06:28 WBC (4.50-10.00) 10*3/uL RBC 2.34 L (4.10-5.20) 10*6/uL Hgb 5.7 L* (12.0-15.0) g/dL Hct 18.6 L* (37.2-46.3) % MCV 79.5 L (80.0-97.0) fL MCH 24.4 L (27.0-32.0) pg MCHC 30.6 L (32.0-37.0) g/dL Neutrophils # (1.80-7.70) 10*3/uL Lymphocytes # 0.86 L (0.90-5.00) 10*3/uL Immature Plt Fraction 14.0 H (1.1-6.1) % Sodium 129 L (137-145) mmol/L Chloride (98-107) mmol/L Carbon Dioxide 18 L (22-30) mmol/L Glucose 154 H (74-99) mg/dL POC Glucose (mg/dL) 195 H (70-110) mg/dL AST 62 H (14-36) U/L ALT 44 H (4-34) U/L Total Protein 5.6 L (6.3-8.2) g/dL Albumin 3.3 L (3.5-5.0) g/dL Urine Appearance (Clear) Urine Glucose (UA) (Negative) Ur Leukocyte Esterase (Negative) Urine Bacteria (None) /hpf Crossmatch 11/17/24 Range/Units 06:51 WBC (4.50-10.00) 10*3/uL RBC (4.10-5.20) 10*6/uL Hgb (12.0-15.0) g/dL Hct (37.2-46.3) % MCV (80.0-97.0) fL MCH (27.0-32.0) pg MCHC (32.0-37.0) g/dL Neutrophils # (1.80-7.70) 10*3/uL Lymphocytes # (0.90-5.00) 10*3/uL Immature Plt Fraction (1.1-6.1) % Sodium (137-145) mmol/L Chloride (98-107) mmol/L Carbon Dioxide (22-30) mmol/L Glucose (74-99) mg/dL POC Glucose (mg/dL) (70-110) mg/dL AST (14-36) U/L ALT (4-34) U/L Total Protein (6.3-8.2) g/dL Albumin (3.5-5.0) g/dL Urine Appearance (Clear) Urine Glucose (UA) (Negative) Ur Leukocyte Esterase (Negative) Urine Bacteria (None) /hpf Crossmatch See Detail
[2024-11-17 19:00] VITALS: RESP 16
[2024-11-17 19:53] LABS: Glucose,Whole Blood 295 mg/dL (70-110)
[2024-11-17] MEDS: INSULIN GLARGINE (LANTUS) 100 UNIT/ML SYR SQ SCH (21:36)
[2024-11-18 06:09] LABS: Glucose,Whole Blood 274 mg/dL (70-110)
[2024-11-18 07:20] LABS: ALT 67 U/L (4-34); AST 47 U/L (14-36); African American GFR (CKD) >90 (>60 ml/min/1.73 sqM); Albumin 3.6 g/dL (3.5-5.0); Alkaline Phosphatase 73 U/L (38-126); Anion Gap 9 mmol/L; Blood Urea Nitrogen 14 mg/dL (7-17); Calcium 9.2 mg/dL (8.4-10.2); Carbon Dioxide 20 mmol/L (22-30); Chloride 101 mmol/L (98-107); Glucose 206 mg/dL (74-99); Non-African American GFR(CKD) >90 (>60 ml/min/1.73 sqM); Potassium 4.3 mmol/L (3.5-5.1); Sodium 130 mmol/L (137-145); Total Bilirubin 0.6 mg/dL (0.2-1.3)
[2024-11-18 07:25] LABS: Basophils # (A) 0.08 10*3/uL (0.00-0.10); Basophils % (A) 0.9 %; Eosinophils # (A) 0.35 10*3/uL (0.04-0.35); HCT 25.9 % (37.2-46.3); HGB 8.3 g/dL (12.0-15.0); Immature Platelet Fraction 14.4 % (1.1-6.1); MCH 25.6 pg (27.0-32.0); MCV 79.9 fL (80.0-97.0); Monocytes # (A) 0.83 10*3/uL (0.20-1.00); Monocytes % (A) 9.6 %; Neutrophils % (A) 70.3 %; Platelet Count 145 10*3/uL (140-440); RBC 3.24 10*6/uL (4.10-5.20); RDW 17.3 % (11.5-14.5); WBC 8.68 10*3/uL (4.50-10.00)
[2024-11-18 09:00] LABS: Anisocytosis (M) Present; Poikilocytosis (M) Present
[2024-11-18] MEDS: ATORVASTATIN 10 MG TAB PO SCH (09:13)
[2024-11-18] MEDS: PANTOPRAZOLE 40 MG/10 ML VIAL IVP SCH (09:13)
[2024-11-18 09:53] VITALS: BP 91/56; PULSE 64; TEMP 98.4
[2024-11-18 10:58] LABS: % Iron Saturation 3.26 (12.00-45.00); Iron 14 UG/DL (50-170); Total Iron Binding Capacity 430 UG/DL (228-460)
[2024-11-18 11:20] LABS: Glucose,Whole Blood 322 mg/dL (70-110)
--- NOTE | 2024-11-18 12:40 | P.PN ---
Subjective Progress Note Date: 11/18/24 SURGICAL PROGRESS NOTE CHIEF COMPLAINT: Dizziness, lightheadedness and hypotension HISTORY OF PRESENT ILLNESS: Surgical service following in regards to patient's anemia. Patient's hemoglobin did come up from 5.7-8.4 after 2 units of blood. Hemoglobin today 8.3. Patient denies any blood in her stools. Denies any abdominal pain. She has declined EGD and colonoscopy during this admission. She reports she is reached out to her physicians in [place] and they are changing her Eliquis which is a newer medication for her. Vital stable. PHYSICAL EXAM: VITAL SIGNS: Reviewed. GENERAL: Well-developed in no acute distress. ABDOMEN: Soft. Nondistended. Nontender. NEUROLOGIC: Alert and oriented. Cranial nerves II through XII grossly intact. ASSESSMENT: 1. Symptomatic anemia with no active GI bleed. On blood thinners at home. Status post 2 units of blood. PLAN: - Hemoglobin did improve after blood transfusion. Patient has no active bleeding. Patient is still declining EGD and colonoscopy during this admission. Recommend that she follows up with her physicians in [place] to discuss EGD and colonoscopy outpatient Physician Staff Nuclear Medicine Technologist note has been reviewed by physician. Signing provider agrees with the documented findings, assessment, and plan of care. Objective - Vital Signs Vital signs: Vital Signs Temp 98.4 F 11/18/24 08:05 Pulse 64 11/18/24 08:05 Resp 16 11/18/24 08:05 BP 91/56 11/18/24 08:05 Pulse Ox 97 11/18/24 08:05 FiO2 Intake & Output 11/17/24 11/18/24 11/18/24 18:59 06:59 18:59 Intake Total 620 540 240 Balance 620 540 240 Weight 62.596 kg 63.6 kg Intake: Oral 540 240 Blood Product 620 Rc As-1 Unit 310 [id number] Rc As-1 Unit 310 [id number] Other: Voiding Method Toilet # Voids 1 - Labs CBC & Chem 7: 11/18/24 06:33 11/18/24 06:33 Labs: Abnormal Lab Results - Last 24 Hours (Table) 11/17/24 11/17/24 11/17/24 Range/Units 06:51 12:54 15:31 RBC 3.15 L (4.10-5.20) 10*6/uL Hgb 8.4 L D (12.0-15.0) g/dL Hct 25.8 L (37.2-46.3) % MCV (80.0-97.0) fL MCH 26.7 L (27.0-32.0) pg MPV 12.6 H (9.5-12.2) fL Immature Plt Fraction (1.1-6.1) % Sodium (137-145) mmol/L Carbon Dioxide (22-30) mmol/L Glucose (74-99) mg/dL POC Glucose (mg/dL) 219 H (70-110) mg/dL Iron (50-170) UG/DL % Saturation (12.00-45.00) AST (14-36) U/L ALT (4-34) U/L Total Protein (6.3-8.2) g/dL Crossmatch See Detail 11/17/24 11/17/24 11/18/24 Range/Units 16:57 19:49 06:07 RBC (4.10-5.20) 10*6/uL Hgb (12.0-15.0) g/dL Hct (37.2-46.3) % MCV (80.0-97.0) fL MCH (27.0-32.0) pg MPV (9.5-12.2) fL Immature Plt Fraction (1.1-6.1) % Sodium (137-145) mmol/L Carbon Dioxide (22-30) mmol/L Glucose (74-99) mg/dL POC Glucose (mg/dL) 280 H 295 H 274 H (70-110) mg/dL Iron (50-170) UG/DL % Saturation (12.00-45.00) AST (14-36) U/L ALT (4-34) U/L Total Protein (6.3-8.2) g/dL Crossmatch 11/18/24 11/18/24 11/18/24 Range/Units 06:33 06:33 11:18 RBC 3.24 L (4.10-5.20) 10*6/uL Hgb 8.3 L (12.0-15.0) g/dL Hct 25.9 L (37.2-46.3) % MCV 79.9 L (80.0-97.0) fL MCH 25.6 L (27.0-32.0) pg MPV (9.5-12.2) fL Immature Plt Fraction 14.4 H (1.1-6.1) % Sodium 130 L (137-145) mmol/L Carbon Dioxide 20 L (22-30) mmol/L Glucose 206 H (74-99) mg/dL POC Glucose (mg/dL) 322 H (70-110) mg/dL Iron 14 L (50-170) UG/DL % Saturation 3.26 L (12.00-45.00) AST 47 H (14-36) U/L ALT 67 H (4-34) U/L Total Protein 6.0 L (6.3-8.2) g/dL Crossmatch
--- NOTE | 2024-11-18 15:37 | P.DS ---
Providers Date of admission: 11/16/24 21:26 Attending physician: Manuel Zelaya Consults: 11/17/24 10:45 Consult Physician Urgent Consulting Provider: Clarissa Quezada Consult Reason/Comments: Acute blood loss anemia? UGI bleed? Do you want consulting provider notified?: Yes Primary care physician: Physician Nonstaff Hospital Course: Discharge Diagnosis: #Severe symptomatic anemia, hemoglobin on arrival 7.1, dropped to 5.7, improved to 8.2 status post 2 units of PRBC #Suspected GI bleed in the setting of Eliquis and Plavix, patient declined EGD and colonoscopy #Lightheadedness generalized weakness secondary to severe symptomatic anemia #Hypovolemic hyponatremia due to dehydration and anemia #Type 2 diabetes mellitus #Mild transaminitis #History of CAD status post CABG on aspirin and Plavix #History of PAD status post vascular surgeries #History of DVT on Eliquis #Iron deficiency anemia Hospital Course: Patient is a 59-year-old female with history of CAD status post CABG, DVT, peripheral artery disease status post vascular surgeries (most recent in May 2024), type 2 diabetes mellitus, hypertension, former heavy smoker and drinker came was brought to the ER after she has been feeling weak, dizzy, lightheaded, dehydrated for 3 to 4 days. Patient is visiting his brother from [place]. Patient denies any history of upper or lower GI bleed. Patient reports no bloody stools or dark-colored stools. Patient is postmenopausal and reports no vaginal bleeding. No EGD or colonoscopy in the past. Patient is currently on Eliquis and Plavix. Patient also reports falling on the floor at home due to weakness and dizziness hurting both her knees but denies any injury to the head. Patient denies using NSAIDs. Patient currently denies any chest pain, shortness of breath, nausea, vomiting, diarrhea, constipation, numbness or weakness of upper or lower extremities. ED course: Patient initial lab work shows WBC 10.15, hemoglobin 7.1, sodium 124, potassium 4.8, glucose 289, BUN 15, creatinine 0.79. Subsequent lab work shows hemoglobin 5.7, sodium 129, AST 62, ALT 64,. Urinalysis positive for glycosuria. Patient currently receiving 2 units of packed RBC. Vital signs on arrival shows temperature 98.6 F, pulse rate 70, respiration rate 18, blood pressure 94/41, oxygen saturation 100% room air. Chest x-ray shows no acute cardiopulmonary process. EKG shows normal sinus rhythm with no ST elevation noted. Ventricular rate 70 bpm, ID interval of 201 ms, QRS duration 154 ms, QTc 480 ms. GI service was not available this week therefore general surgery was consulted for suspected GI bleed. Patient declined EGD and colonoscopy because patient wanted to be with her ailing brother and other family members, she has been visiting in [place]. Patient wants to go back to [place] and see her primary care physician and vascular surgery and other consultants whom she has been well-established and will decide on EGD and colonoscopy. However, risk versus benefit of being on Eliquis and Plavix have been explained to the patient. Patient has been advised to hold Eliquis and Plavix until she go back to [place] and see her healthcare providers. Hemoglobin has been stable after she received 2 units of packed RBC. Hemoglobin currently is 8.2 with no active bleeding. Patient had a bowel movement this morning and denies any hematochezia or tarry colored stools. She is otherwise hemodynamically stable. Patient has been advised to seek urgent care or go to the ER if she starts to feel weak, dizzy, abdominal pain, nausea, vomiting, experiencing active bleeding, hematochezia or melanotic stools. Patient understands and agrees. Prescription was provided for CBC and BMP to be done within 1 to 3 days. And asked to follow-up PCP locally for results. Additionally, patient will be started on ferrous sulfate 325 mg p.o. and Protonix 40 mg p.o. once daily. Discharge disposition: Home Vital signs reviewed. Gen: in no apparent distress, resting comfortably in bed Eyes: PERRLA, EOMI, no scleral injection or icterus HENT: normocephalic, atraumatic, good hearing acuity, moist mucous membranes Neck: full range of motion Resp: CTAB, no rales, rhonchi, or wheezes CVS: normal S1 and S2, no murmurs, rubs or gallops, no edema GI: soft, NTTP, ND, no hepatosplenomegaly : no suprapubic tenderness, no CVAT, schaeffer catheter [is/not] present MSK: no clubbing, no cyanosis, no noted contractures of extremities Skin: no noted rashes, petechiae; temperature of skin is appropriate Neuro: moving all extremities without signs of weakness, CN II-XII intact Psych: cooperative, euthymic mood, insight and judgment intact Dictation was produced using [employer] dictation software. Please excuse any grammatical, word or spelling errors. Patient Condition at Discharge: Stable Plan - Discharge Summary Discharge Rx Participant: Yes New Discharge Prescriptions: New Ferrous Sulfate [Feosol] 325 mg PO DAILY #30 tab Pantoprazole Sodium [Protonix] 40 mg PO ONCE #30 tab Continue lisinopriL [Zestril] 10 mg PO DAILY carvediloL [Coreg] 3.125 mg PO BID Rosuvastatin Calcium 5 mg PO DAILY Evolocumab [Repatha Sureclick] 140 mg SQ Q14D Spironolactone [Aldactone] 25 mg PO DAILY Insulin Glargine,Hum.rec.anlog [Basaglar Kwikpen U-100] 10 unit SQ HS Discontinued Apixaban [Eliquis] 5 mg PO BID Clopidogrel [Plavix] 75 mg PO DAILY Discharge Medication List Evolocumab [Repatha Sureclick] 140 mg SQ Q14D 11/17/24 [History] Insulin Glargine,Hum.rec.anlog [Basaglar Kwikpen U-100] 10 unit SQ HS 11/17/24 [History] Rosuvastatin Calcium 5 mg PO DAILY 11/17/24 [History] Spironolactone [Aldactone] 25 mg PO DAILY 11/17/24 [History] carvediloL [Coreg] 3.125 mg PO BID 11/17/24 [History] lisinopriL [Zestril] 10 mg PO DAILY 11/17/24 [History] Ferrous Sulfate [Feosol] 325 mg PO DAILY #30 tab 11/18/24 [Rx] Pantoprazole Sodium [Protonix] 40 mg PO ONCE #30 tab 11/18/24 [Rx] Follow up Appointment(s)/Referral(s): None,Stated [REFERRING] - 1-2 days Ambulatory/Diagnostic Orders: Basic Metabolic Panel [LAB.AMB] Time Frame: 3 Days, Facility: [facility], Location: [place] [address] Complete Blood Count w/diff [LAB.AMB] Time Frame: 3 Days, Facility: [facility], Location: [facility] [facility] Patient Instructions/Handouts: Anemia (DC) Activity/Diet/Wound Care/Special Instructions: Please follow-up with your PCP within 1 week at the address below: [facility] Address: [facility] [facility], [place] [address] Continue to hold Eliquis and Plavix until you see your primary care physician in [place]. In the meantime, repeat your blood work and see PCP locally for follow-up. Discharge Disposition: HOME SELF-CARE
== END 2024-11-18 15:56 | disposition home or self-care (01) | DRG 812 ==
LOC: EC 19:27 → 4SSUR 21:25 → OBSVTOIN 21:26 → 3SCARD 11-17 06:30
PROVIDERS: ADMIT Hospitalist; ATTEND Hospitalist
PROC: 30233N1 Transfusion of Nonautologous Red Blood Cells into Peripheral Vein, Percutaneous Approach (ICD-10-PCS; principal; 2024-11-17)
DX: D50.9 Iron deficiency anemia, unspecified (principal); D68.32 Hemorrhagic disorder due to extrinsic circulating anticoagulants; K92.2 Gastrointestinal hemorrhage, unspecified; E11.51 Type 2 diabetes mellitus with diabetic peripheral angiopathy without gangrene; Z95.820 Peripheral vascular angioplasty status with implants and grafts; F10.11 Alcohol abuse, in remission; I10 Essential (primary) hypertension; E87.1 Hypo-osmolality and hyponatremia; E86.0 Dehydration; I25.10 Atherosclerotic heart disease of native coronary artery without angina pectoris; I95.1 Orthostatic hypotension; R81 Glycosuria; T45.515A Adverse effect of anticoagulants, initial encounter; T45.525A Adverse effect of antithrombotic drugs, initial encounter; R74.01 Elevation of levels of liver transaminase levels; W18.30XA Fall on same level, unspecified, initial encounter; E86.1 Hypovolemia; Z79.01 Long term (current) use of anticoagulants; Z79.02 Long term (current) use of antithrombotics/antiplatelets; Z87.891 Personal history of nicotine dependence; Z79.84 Long term (current) use of oral hypoglycemic drugs; Z95.1 Presence of aortocoronary bypass graft; Z86.718 Personal history of other venous thrombosis and embolism; Y92.009 Unspecified place in unspecified non-institutional (private) residence as the place of occurrence of the external cause; Z79.899 Other long term (current) drug therapy
CPT/HCPCS: 36415; 71046; 80053; 81001; 83540; 83550; 84484; 85025; 85027; 85610; 85730; 86850; 86900; 86901; 86920; 93005; 96360; 96361; 99285

== ENCOUNTER 2024-12-12 13:43 | Emergency (ER) | payer OTHER ==
[2024-12-12 13:47] VITALS: TEMP 98.1
[2024-12-12 14:47] LABS: Basophils # (A) 0.09 10*3/uL (0.00-0.10); Basophils % (A) 1.1 %; Eosinophils # (A) 0.27 10*3/uL (0.04-0.35); Eosinophils % (A) 3.4 %; HCT 31.2 % (37.2-46.3); HGB 10.2 g/dL (12.0-15.0); Lymphocytes # (A) 1.13 10*3/uL (0.90-5.00); Lymphocytes % (A) 14.1 %; MCH 27.4 pg (27.0-32.0); MCHC 32.7 g/dL (32.0-37.0); MCV 83.9 fL (80.0-97.0); Mean Platelet Volume 11.6 fL (9.5-12.2); Monocytes # (A) 0.66 10*3/uL (0.20-1.00); Monocytes % (A) 8.2 %; Neutrophils # (A) 5.87 10*3/uL (1.80-7.70); Platelet Count 216 10*3/uL (140-440); RBC 3.72 10*6/uL (4.10-5.20); RDW 21.2 % (11.5-14.5); WBC 8.04 10*3/uL (4.50-10.00)
--- NOTE | 2024-12-12 14:48 | ED ---
General Adult HPI - General Chief complaint: Dizziness Stated complaint: dizziness,weakness Time Seen by Provider: 12/12/24 13:50 Source: patient Mode of arrival: ambulatory Limitations: no limitations - History of Present Illness Initial comments: Dictation was produced using [employer] dictation software. please excuse any grammatical, word or spelling errors. Chief Complaint: 59-year-old female presents with dizziness and fatigue History of Present Illness: Patient is 59-year-old female she is visiting family from [facility]. She states she has been here for approximately 3 months. Was seen here in our emergency department 1 month ago for anemia. Patient states that at that time she was given 1 unit of blood with improvement of her symptoms. Denies any bloody stools. Denies any pain complaints. The ROS documented in this emergency department record has been reviewed and confirmed by me. Those systems with pertinent positive or negative responses have been documented in the HPI. All other systems are other negative and/or noncontributory. - Related Data Home Medications Medication Instructions Recorded Confirmed Evolocumab [Repatha Sureclick] 140 mg SQ Q14D 11/17/24 11/17/24 Insulin Glargine,Hum.rec.anlog 10 unit SQ HS 11/17/24 11/17/24 [Basaglar Kwikpen U-100] Rosuvastatin Calcium 5 mg PO DAILY 11/17/24 11/17/24 Spironolactone [Aldactone] 25 mg PO DAILY 11/17/24 11/17/24 carvediloL [Coreg] 3.125 mg PO BID 11/17/24 11/17/24 lisinopriL [Zestril] 10 mg PO DAILY 11/17/24 11/17/24 Previous Rx's Medication Instructions Recorded Ferrous Sulfate [Feosol] 325 mg PO DAILY #30 tab 11/18/24 Pantoprazole Sodium [Protonix] 40 mg PO ONCE #30 tab 11/18/24 Allergies Allergy/AdvReac Type Severity Reaction Status Date / Time No Known Allergies Allergy Verified 12/12/24 13:47 Review of Systems ROS Statement: Those systems with pertinent positive or pertinent negative responses have been documented in the HPI. ROS Other: All systems not noted in ROS Statement are negative. Past Medical History Past Medical History: Chest Pain / Angina, Diabetes Mellitus, Hypertension History of Any Multi-Drug Resistant Organisms: None Reported Past Surgical History: Section, Coronary Bypass/CABG Additional Past Surgical History / Comment(s): Femoral bypass Past Anesthesia/Blood Transfusion Reactions: No Reported Reaction Type of Cardiac Device: AICD Device Placement Date:: 2022 Past Psychological History: No Psychological Hx Reported Smoking Status: Never smoker Past Alcohol Use History: None Reported Past Drug Use History: None Reported - Past Family History Mother Family Medical History: Cancer Additional Family Medical History / Comment(s): breast CA Father Family Medical History: Diabetes Mellitus General Exam - General Exam Comments Initial Comments: PHYSICAL EXAM: General Impression: Alert and oriented x3, not in acute distress HEENT: Normocephalic atraumatic, extra-ocular movements intact, pupils equal and reactive to light bilaterally, mucous membranes moist. Cardiovascular: Heart regular rate and rhythm Chest: Able to complete full sentences, no retractions, no tachypnea Abdomen: abdomen soft, non-tender, non-distended, no organomegaly Musculoskeletal: Pulses present and equal in all extremities, no peripheral edema Motor: no focal deficits noted Neurological: CN II-XII grossly intact, no focal motor or sensory deficits noted Skin: Intact with no visualized rashes Psych: Normal affect and mood Limitations: no limitations Course Vital Signs 12/12/24 13:45 Temperature 98.1 F Pulse Rate 70 Respiratory 17 Rate Blood Pressure 120/66 O2 Sat by Pulse 100 Oximetry Medical Decision Making - Medical Decision Making Was pt. sent in by a medical professional or institution (, PA, POLICE ACADEMY INSTRUCTOR, urgent care, hospital, or halfway...) When possible be specific @ -No Did you speak to anyone other than the patient for history (EMS, parent, family, police, friend...)? What history was obtained from this source @ -No Did you review nursing and triage notes (agree or disagree)? Why? @ -I reviewed and agree with nursing and triage notes Were old charts reviewed (outside hosp., previous admission, EMS record, old EKG, old radiological studies, urgent care reports/EKG's, halfway records)? Report findings @ -No old charts were reviewed Differential Diagnosis (chest pain, altered mental status, abdominal pain women, abdominal pain men, vaginal bleeding, musculoskeletal, weakness, fever, dyspnea, syncope, headache, dizziness, GI bleed, back pain, seizure, CVA, palpatations, mental health)? @ -Differential Weakness: Hypoglycemia, shock, sepsis, hyponatremia, anemia, infection, AK, ETOH, adverse medicine reaction, overdose, stroke, this is not meant to be an all-inclusive list. EKG interpreted by me (3pts min.). @ -None done X-rays interpreted by me (1pt min.). @ -None done CT interpreted by me (1pt min.). @ -None done U/S interpreted by me (1pt. min.). @ -None done What testing was considered but not performed or refused? (CT, X-rays, U/S, labs)? Why? @ -None What meds were considered but not given or refused? Why? @ -None Was smoking cessation discussed for >3mins.? @ -No Were there social determinants of health that impacted care today? How? (Homelessness, low income, unemployed, alcoholism, drug addiction, transportation, low edu. Level, literacy, decrease access to med. care, retirement, rehab)? @ -No Was there de-escalation of care discussed even if they declined (Discuss DNR or withdrawal of care, Hospice)? DNR status @ -No What co-morbidities impacted this encounter? (DM, HTN, Smoking, COPD, CAD, Cancer, CVA, ARF, Chemo, Hep., AIDS, mental health diagnosis, sleep apnea, morbid obesity)? @ -None Was patient admitted / discharged? Hospital course, mention meds given and route, prescriptions, significant lab abnormalities, going to OR and other pertinent info. @ -59-year-old female presents with generalized weakness. Vital signs stable. Patient well-appearing at the bedside. Patient concerned that she is anemic a gain. Laboratory evaluation obtained. Hemoglobin is improved. Coag panel is negative. Metabolic panel shows send 130, elevated BUN to creatinine ratio. Patient given IV fluids reevaluated bedside 3:21 PM found to be stable to condition. Patient be discharged. Did you discuss the management of the patient with other professionals (professionals i.e. , PA, POLICE ACADEMY INSTRUCTOR, lab, RT, psych nurse, social work instructor, director of public works, teacher, reserve officer, case management rn)? Give summary @ -No Was critical care preformed (if so, how long)? @ -No Undiagnosed new problem with uncertain prognosis? @ -No Drug Therapy requiring intensive monitoring for toxicity (Heparin, Nitro, Insulin, Cardizem)? @ -No Were any procedures done? @ -No Diagnosis/symptom? Acute, or Chronic, or Acute on Chronic? Uncomplicated (with out systemic symptoms) or Complicated (systemic symptoms)? @ -Dehydration Side effects of treatment? @ -No Exacerbation, Progression, or Severe Exacerbation? @ -No Poses a threat to life or bodily function? How? (Chest pain, USA, AK, pneumonia, PE, COPD, DKA, ARF, appy, cholecystitis, CVA, Diverticulitis, Homicidal, Suicidal, threat to staff... and all critical care pts) @ -No - Lab Data Result diagrams: 12/12/24 14:33 12/12/24 14:33 Lab Results 12/12/24 12/12/24 12/12/24 Range/Units 14:33 14:33 14:33 WBC 8.04 (4.50-10.00) 10*3/uL RBC 3.72 L (4.10-5.20) 10*6/uL Hgb 10.2 L (12.0-15.0) g/dL Hct 31.2 L (37.2-46.3) % MCV 83.9 (80.0-97.0) fL MCH 27.4 (27.0-32.0) pg MCHC 32.7 (32.0-37.0) g/dL Plt Count 216 (140-440) 10*3/uL MPV 11.6 (9.5-12.2) fL Immature Gran % (Auto) 0.2 % Neutrophils % 73.0 % Lymphocytes % 14.1 % Monocytes % 8.2 % Eosinophils % 3.4 % Basophils % 1.1 % Immature Gran # 0.02 (0.00-0.04) 10*3/uL Neutrophils # 5.87 (1.80-7.70) 10*3/uL Lymphocytes # 1.13 (0.90-5.00) 10*3/uL Monocytes # 0.66 (0.20-1.00) 10*3/uL Eosinophils # 0.27 (0.04-0.35) 10*3/uL Basophils # 0.09 (0.00-0.10) 10*3/uL PT 10.4 (10.0-12.5) sec INR 0.9 (<1.2) APTT 24.0 (22.0-30.0) sec Sodium 130 L (137-145) mmol/L Potassium 5.0 (3.5-5.1) mmol/L Chloride 101 (98-107) mmol/L Carbon Dioxide 18 L (22-30) mmol/L Anion Gap 11 mmol/L BUN 26 H (7-17) mg/dL Creatinine 0.92 (0.52-1.04) mg/dL Est GFR (CKD-EPI)AfAm 80 (>60 ml/min/1.73 sqM) Est GFR (CKD-EPI)NonAf 70 (>60 ml/min/1.73 sqM) Glucose 206 H (74-99) mg/dL Calcium 9.2 (8.4-10.2) mg/dL Total Bilirubin 0.4 (0.2-1.3) mg/dL AST 27 (14-36) U/L ALT 17 (4-34) U/L Alkaline Phosphatase 70 (38-126) U/L Total Protein 6.5 (6.3-8.2) g/dL Albumin 4.0 (3.5-5.0) g/dL Disposition Clinical Impression: Dehydration Disposition: HOME SELF-CARE Condition: Fair Instructions (If sedation given, give patient instructions): Dizziness (ED) Is patient prescribed a controlled substance at d/c from ED?: No Referrals: Nonstaff,Physician [Primary Care Provider] - 1-2 days Time of Disposition: 15:22
[2024-12-12 15:01] LABS: INR 0.9 (<1.2); Prothrombin Time 10.4 sec (10.0-12.5)
[2024-12-12 15:06] LABS: ALT 17 U/L (4-34); AST 27 U/L (14-36); African American GFR (CKD) 80 (>60 ml/min/1.73 sqM); Alkaline Phosphatase 70 U/L (38-126); Anion Gap 11 mmol/L; Blood Urea Nitrogen 26 mg/dL (7-17); Calcium 9.2 mg/dL (8.4-10.2); Carbon Dioxide 18 mmol/L (22-30); Chloride 101 mmol/L (98-107); Glucose 206 mg/dL (74-99); Non-African American GFR(CKD) 70 (>60 ml/min/1.73 sqM); Sodium 130 mmol/L (137-145); Total Bilirubin 0.4 mg/dL (0.2-1.3); Total Protein 6.5 g/dL (6.3-8.2)
[2024-12-12] MEDS: SODIUM CHLORIDE 0.9% 1,000 ML IV STA (15:47)
[2024-12-12 16:31] VITALS: BP 132/67; PULSE 63; RESP 20
== END 2024-12-12 16:37 | disposition home or self-care (01) ==
LOC: EC 13:43
DX: E86.0 Dehydration (principal)
CPT/HCPCS: 36415; 80053; 85025; 85610; 85730; 86850; 86900; 86901; 96360; 99284